=== PATIENT | female | born 1940 | race Caucasian/White ===

== ENCOUNTER 2020-10-19 13:46 | Emergency (ER) | payer MEDICARE ==
[~2020-10-19] VITALS: Ht 165.1 cm; Wt 73.0 kg
[~2020-10-19 13:46] MED LIST: ASPI-515 PO; ATOR20TA37 PO; CALC1TAB2 PO; CHOL-29 PO; LACT1CAP24 PO; LEVO100T5 PO
--- NOTE | 2020-10-19 14:20 | NUR ---
ER PA WAS IN TO SEE PT. PT HAS N/V WITH MOVEMENT.
[2020-10-19] MEDS ORDERED: ONDANSETRON 2MG/ML, 2ML IVPush ONE (14:30)
[2020-10-19] MEDS ORDERED: SODIUM CHLORIDE 0.9% 1,000ML IVBOLUS ONE (14:30)
[2020-10-19] MEDS ORDERED: ONDANSETRON 2MG/ML, 2ML ONE (14:42)
[2020-10-19 15:06] LABS: BASOPHILS % (AUTO) 1 % (0-1); EOSINOPHILS % (AUTO) 0 % (1-7); LYMPHOCYTES % (AUTO) 15 % (22-44); MEAN CORPUSCULAR HEMOGLOBIN 31.6 pg (27.0-34.8); MEAN CORPUSCULAR HGB CONC 33.9 g/dL (32.4-35.8); MEAN PLATELET VOLUME 8.4 fL (7.4-10.4); MONOCYTES % (AUTO) 10 % (2-9); NEUTROPHILS % (AUTO) 74 % (42-75); PLATELET COUNT 207 x10^3/uL (130-400); RED BLOOD COUNT 4.59 x10^6/uL (3.82-5.3); RED CELL DISTRIBUTION WIDTH 14.3 % (9.6-15.2)
[2020-10-19 15:12] LABS: MD NO
[2020-10-19 15:29] LABS: ALBUMIN 3.9 g/dL (3.4-5.0); ANION GAP 8 mmol/L (5-15); CALCIUM 9.2 mg/dL (8.5-10.1); CHLORIDE 103 mmol/L (98-107); CREATININE 0.82 mg/dL (0.55-1.02)
--- NOTE | 2020-10-19 15:45 | NUR ---
ASSISTED PT UP TO BSC. INSTRUCTED ON CLEAN CATCH URINE SAMPLE. PT C/O NAUSEA/"WOOZINESS" WITH ANY MOVEMENT.
[2020-10-19 15:52] LABS: MICROSCOPIC AUTO
[2020-10-19] MEDS ORDERED: METOCLOPRAMIDE 5 MG/ML, 2ML ONE (15:56)
[2020-10-19] MEDS ORDERED: METOCLOPRAMIDE 5 MG/ML, 2ML IVPush ONE (16:00)
--- NOTE | 2020-10-19 16:02 | NUR ---
ERP WAS IN FOR RECHECK. PT MEDICATED WITH REGLAN FOR CONTINUED NAUSEA, NO VOMITING. SON REMAINS AT BS.
[2020-10-19 16:50] VITALS: BP 148/69
--- NOTE | 2020-10-19 16:57 | NUR ---
PT AMBULATED IN HALLWAY. STILL C/O SOME NAUSEA WHEN SHE GETS UP, BUT STATES SHE'S FEELING BETTER THAN WHEN SHE ARRIVED. ER PA AND ERP NOTIFIED.
--- NOTE | 2020-10-19 17:22 | NUR ---
D/C INSTRUCTIONS, MEDS & F/U APPT RV'WD WITH PT AND SON, THEY VERBALIZE UNDERSTANDING. RX GIVEN X2. PER DR. KING, OKAY IF PT HOLDS OFF ON AMOXICILLIN RX FOR NOW BUT SHOULD CONTINUE TO TAKE ANTIVIRAL. ASSISTED PT OUT OF ED VIA WC WITH SON.
[2020-10-20] MEDS ORDERED: ACYC-57 PO (16:22)
[2020-10-20] MEDS ORDERED: SUCR1TAB PO (16:22)
== END 2020-10-19 17:23 | disposition home or self-care (01) ==
LOC: ED 14:25
DX: R11.2 Nausea with vomiting, unspecified (principal); B02.9 Zoster without complications; E78.5 Hyperlipidemia, unspecified; Z86.39 Personal history of other endocrine, nutritional and metabolic disease
CPT/HCPCS: 36415; 71045; 80048; 81001; 82040; 83605; 85025; 96361; 96374; 96375; 99284; J2405; J2765; J7030; 99285

== ENCOUNTER 2020-10-20 12:47 | Inpatient (IN) | payer MEDICARE ==
[~2020-10-20] VITALS: Ht 162.6 cm; Wt 78.5 kg
[2020-10-20] MEDS ORDERED: PROPARACAINE OPHTH 0.5%, 15ML ONE (13:18)
[2020-10-20] MEDS ORDERED: FLUORESCEIN OPHTHALMIC 1 MG STRIP ONE (13:18)
[2020-10-20] MEDS ORDERED: ONDANSETRON 2MG/ML, 2ML IVPush ONE (13:30)
[2020-10-20] MEDS ORDERED: FAMOTIDINE 20 MG/2 ML IVPush ONE (13:30)
[2020-10-20] MEDS ORDERED: SODIUM CHLORIDE 0.9% 1,000ML IVBOLUS ONE (13:30)
[2020-10-20] MEDS ORDERED: SODIUM CHLORIDE FLUSH 10ML SYR IVF ONE (13:30)
[2020-10-20] MEDS ORDERED: ONDANSETRON 2MG/ML, 2ML ONE ×2 (13:34→19:23)
[2020-10-20] MEDS ORDERED: FAMOTIDINE 20 MG/2 ML ONE (13:35)
--- NOTE | 2020-10-20 13:57 | NUR ---
PIV PLACED, LABS DRAWN AND SENT TO LAB WITH LAB STICKERS. IVF RUNNING. MEDS ADMIN PER NOV. WARM BLANKET PROVIDED.
[2020-10-20 14:02] LABS: BASOPHILS % (AUTO) 1 % (0-1); EOSINOPHILS % (AUTO) 0 % (1-7); LYMPHOCYTES % (AUTO) 14 % (22-44); MEAN CORPUSCULAR HEMOGLOBIN 31.4 pg (27.0-34.8); MEAN CORPUSCULAR HGB CONC 33.8 g/dL (32.4-35.8); MONOCYTES % (AUTO) 12 % (2-9); NEUTROPHILS % (AUTO) 73 % (42-75); PLATELET COUNT 221 x10^3/uL (130-400); RED BLOOD COUNT 4.74 x10^6/uL (3.82-5.3); RED CELL DISTRIBUTION WIDTH 14.2 % (9.6-15.2)
[2020-10-20 14:04] LABS: MD NO
[2020-10-20 14:09] LABS: ALANINE AMINOTRANSFERASE 21 U/L (12-78); ALBUMIN 3.7 g/dL (3.4-5.0); ANION GAP 9 mmol/L (5-15); CALCIUM 9.1 mg/dL (8.5-10.1); CHLORIDE 103 mmol/L (98-107); CREATININE 0.73 mg/dL (0.55-1.02)
[2020-10-20 14:12] LABS: ALKALINE PHOSPHATASE 95 U/L (45-117); BILIRUBIN,TOTAL 0.8 mg/dL (0.2-1.0); TOTAL PROTEIN 7.3 g/dL (6.4-8.2)
--- NOTE | 2020-10-20 14:35 | NUR ---
MD AT BEDSIDE TO UPDATE PT ON POC.
[2020-10-20] MEDS ORDERED: SODIUM CHLORIDE 0.9% IV ONE (15:00)
[2020-10-20] MEDS ORDERED: ACYCLOVIR IV ONE (15:00)
--- NOTE | 2020-10-20 15:05 | NUR ---
IV MEDS STARTED PER NOV. PT PROVIDED WATER AND CRACKERS FOR PO CHALLENGE. SON TO RUN HOME DURING 1 HR INFUSION TIME.
--- NOTE | 2020-10-20 15:45 | NUR ---
PT HAS TOLERATED WATER AND CRACKERS. PT RESTING COMFORTABLY ON GURNEY.
--- NOTE | 2020-10-20 16:16 | NUR ---
PT STATES SHE VOMITTED AGAIN AFTER MD IN ROOM. MD NOTIFIED. PT TO BE ADMIT.
[2020-10-20] MEDS ORDERED: SUCR1TAB PO (16:22)
[2020-10-20] MEDS ORDERED: ACYC-57 PO (16:22)
[2020-10-20] MEDS ORDERED: SODIUM CHLORIDE 0.9% 1,000 ML IV SCH (17:00)
[2020-10-20] MEDS ORDERED: ENOXAPARIN 40 MG/0.4 ML SQ SCH (18:00)
--- NOTE | 2020-10-20 18:20 | NUR ---
REPORT GIVEN TO LILLIAM HAM. PT RTG ROOM [id number]
--- NOTE | 2020-10-20 19:00 | NUR ---
REPORT FROM JITENDRA VILLANUEVA. PT CARE ASSUMED.
[2020-10-20] MEDS: ONDANSETRON 2MG/ML, 2ML IVPush PRN ×2 (19:27→23:46)
--- NOTE | 2020-10-20 20:31 | NUR ---
REPORT TO KAVYA ARMAS RN. PT AWAITING TRASNPORT AT THIS TIME. PT AND FAMILY PROVIDED WITH EXTENSIVE AMOUNT OF EDUCATION ON SHINGLES, IT'S MEDICAL MANAGEMENT, AND NECESSARY PRECAUTIONS. PATIENT AND HER SON BOTH VEBALIZE UNDERSTANDING, ALL QUESTIONS ADDRESSED. CALL LIGHT IN REACH.
[2020-10-20] MEDS ORDERED: ATORVASTATIN 20 MG TABLET PO SCH (21:00)
[2020-10-20 21:57] VITALS: BP 153/96
[2020-10-20 22:19] VITALS: BP 153/96
[2020-10-20] MEDS: ACYCLOVIR IV SCH (23:46)
[2020-10-20] MEDS: SODIUM CHLORIDE 0.9% IV SCH (23:46)
[2020-10-21 01:21] VITALS: BP 146/79
[2020-10-21] MEDS: ACETAMINOPHEN 325 MG TABLET PO PRN ×2 (03:44→03:46)
[2020-10-21 05:12] LABS: BASOPHILS % (AUTO) 1 % (0-1); EOSINOPHILS % (AUTO) 0 % (1-7); LYMPHOCYTES % (AUTO) 26 % (22-44); MEAN CORPUSCULAR HEMOGLOBIN 31.2 pg (27.0-34.8); MEAN PLATELET VOLUME 8.5 fL (7.4-10.4); MONOCYTES % (AUTO) 11 % (2-9); NEUTROPHILS % (AUTO) 62 % (42-75); PLATELET COUNT 202 x10^3/uL (130-400); RED BLOOD COUNT 4.36 x10^6/uL (3.82-5.3); RED CELL DISTRIBUTION WIDTH 14.4 % (9.6-15.2)
[2020-10-21 05:22] LABS: ANION GAP 6 mmol/L (5-15); CALCIUM 8.5 mg/dL (8.5-10.1); CHLORIDE 105 mmol/L (98-107); CREATININE 0.62 mg/dL (0.55-1.02)
[2020-10-21 05:26] LABS: MD NO
[2020-10-21] MEDS ORDERED: LEVOTHYROXINE 100 MCG TABLET PO SCH (06:00)
[2020-10-21 07:56] VITALS: BP 137/67
[2020-10-21] MEDS ORDERED: POTASSIUM CHLORIDE 40 MEQ in SODIUM CHLORIDE 0.9% 500 ML IV ONE (08:00)
[2020-10-21] MEDS: SODIUM CHLORIDE 0.9% IV SCH (08:24)
[2020-10-21] MEDS: ACYCLOVIR IV SCH (08:24)
[2020-10-21] MEDS ORDERED: ASPIRIN 81 MG TABLET EC PO SCH (09:00)
[2020-10-21 12:12] VITALS: BP 140/65
[2020-10-21] MEDS ORDERED: ACYC15OI17 EACHEYE (13:38)
[2020-10-21] MEDS ORDERED: ONDA4TAB7 PO (13:38)
== END 2020-10-21 17:00 | disposition home or self-care (01) | DRG 866 ==
LOC: ED 13:15 → EDIP 16:42 → OBSVTOIN 18:10 → 3N 21:30
PROVIDERS: ADMIT Internal Medicine Infectious Disease; ATTEND Internal Medicine Infectious Disease
DX: B02.8 Zoster with other complications (principal); B02.33 Zoster keratitis; E03.9 Hypothyroidism, unspecified; E78.5 Hyperlipidemia, unspecified; E87.6 Hypokalemia; T36.0X5A Adverse effect of penicillins, initial encounter; Y92.89 Other specified places as the place of occurrence of the external cause; Z82.61 Family history of arthritis; Z87.891 Personal history of nicotine dependence; Z88.2 Allergy status to sulfonamides
CPT/HCPCS: 36415; 80048; 80053; 83690; 85025; G0378; J0133; J1650; J2405; J3480; J7030; J7040; J7050